=== PATIENT | female | born 1970 | race Caucasian/White ===

== ENCOUNTER 2022-08-14 08:03 | Emergency (ER) | payer OTHER, SELFPAY ==
--- NOTE | ~2022-08-14 | XR_ITS ---
EXAMINATION: XR lumbar spine min 4V DATE: 08/14/2022 08:47 INDICATION: Low back pain with right-sided sciatica. TECHNIQUE: 5 views of lumbar spine were obtained. COMPARISON: None. FINDINGS: There is 6 degrees dextrocurvature of thoracolumbar spine. Vertebral body heights are dino l. There is mildly decreased disc height at L5-S1. There are endplate osteophytes at most levels. The re is multilevel mild facet joint osteoarthritis. On the right, there is moderate facet joint osteoar thritis at L5-S1. IMPRESSION: 1. Mild lumbar spondylosis. Reviewed, dictated and finalized at location A. IMPRESSION: 1. Mild lumbar spondylosis.
[2022-08-14 08:24] VITALS: BP 132/89; PULSE 114; RESP 18; TEMP 36.7; O2SAT 100
--- NOTE | 2022-08-14 08:24 | ED.GENADULT ---
HPI - General Adult General Chief complaint: Back Pain/Injury Stated complaint: back/leg pain Time Seen by Provider: 08/14/22 08:30 Source: patient, RN notes reviewed and old records reviewed Mode of arrival: ambulatory Limitations: no limitations History of Present Illness HPI narrative: 51year old female who presents to [facility] care with complaints of right sciatica which started at 0300 am on Sunday with radiation down to mid posterior thigh. Patient reports no tingling or numbness down her right leg, reports feelings of muscle spasms in upper and lower leg. Patient reports that she did telehealth visit and received script for Robaxin which she reports did not help at all, has been taking Ibuprofen for her discomfort. Patient states no problems with her bowel or bladder function or any saddle parasthesia. MD complaint: right sciatica Onset (ago): day(s) (2) Severity scale (1-10): 5 Treatments prior to arrival: NSAID and other (Robaxin) Related Data Home Medications Medication Instructions Recorded Confirmed lisinopril 20 1 tablet PO DAILY 08/14/22 08/14/22 mg-hydrochlorothiazide 25 mg tablet sertraline 50 mg tablet 50 mg PO DAILY 08/14/22 08/14/22 Allergies Allergy/AdvReac Type Severity Reaction Status Date / Time aspirin Allergy Anaphylaxis Verified 08/14/22 08:27 Penicillins Allergy Anaphylaxis Verified 08/14/22 08:27 Review of Systems Review of Systems: CONSTITUTIONAL: Denies fever, chills, or sweats. CARDIOVASCULAR: Denies chest pain, palpitations, or edema. RESPIRATORY: Denies cough or dyspnea. GASTROINTESTINAL: Denies abdominal pain, nausea, vomiting, or diarrhea. GENITOURINARY: Denies dysuria or hematuria. SKIN: Denies rash or itching. MUSCULOSKELETAL: Reports right sided lower back pain with radiation down right posterior thigh. Joint pain or myalgia. NEUROLOGIC: Denies headache, numbness, or weakness. All systems reviewed & are unremarkable except as noted in HPI and below PMFSH Past Medical History Medical History (Updated 08/14/22 @ 09:15 by Carlota Whitlock NP) Anxiety Hypertension Comments At time of signature, agree with nursing past medical, surgical, social and family history. There is no relevant family history pertinent to the presenting complaint Exam Narrative: GENERAL: Well-appearing, well-nourished, and in no acute distress. HEAD: Normocephalic, atraumatic. EYES: PERRLA and EOMI. NECK: Supple. No lymphadenopathy. CHEST: Clear to auscultation. No respiratory distress. HEART: Regular rate and rhythm. Distal pulses palpable and equal, cap refill <3 seconds ABDOMEN: Soft, nontender, nondistended, normal active bowel sounds, no palpable or pulsatile masses. No CVA tenderness MUSCULOSKELETAL: Normal range of motion and strength in all extremities; 5/5 strength with hip flexion and extension, dorsiflexion and extension, knee flexion and extension, plantar flexion and extension. Normal sensation in dermatomal distributions with sensitivity to light touch and pain. No midline back tenderness to palpation. No paraspinal tenderness. Transfers from lying to sitting to standing,pain right sciatica down posterior leg to knee, denies any tingling or numbness to legs. SKIN: Warm, dry, no rash. No ecchymosis, erythema, open wounds to back. NEURO: No focal deficits. Alert and oriented x3. Reflexes intact. Normal gait. PSYCH: Normal mood and affect Course Course Emergency Course: Patient is aware of diagnosis, understands and agrees to treatment plan. Anticipatory guidance given. Patient agrees to follow-up as directed and is aware of reasons to seek care at the emergency department. Portions of this record may have been created with voice recognition software Level of Care: Express Care Visit Vital Signs Vital signs: Vital Signs Temperature 36.7 C 08/14/22 08:24 Pulse Rate 114 H 08/14/22 08:24 Respiratory Rate 18 08/14/22 08:24 Blood Pressure 13
== END 2022-08-14 09:20 | disposition home or self-care (01) ==
PROVIDERS: Emergency Provider Registered Nurse
DX: M54.41 Lumbago with sciatica, right side (principal); I10 Essential (primary) hypertension; F41.9 Anxiety disorder, unspecified
CPT/HCPCS: 72110; 99203; G0463

== ENCOUNTER 2024-08-01 18:42 | Emergency (ER) | payer OTHER, SELFPAY ==
--- NOTE | 2024-08-01 18:45 | ED.SKABFB ---
HPI - Skin/Abscess/Foreign Bdy General Chief complaint: Skin/Abscess/Foreign Body Stated complaint: Lump on Chest Time Seen by Provider: 08/01/24 18:44 Source: patient Mode of arrival: ambulatory Limitations: no limitations History of Present Illness HPI narrative: Daniel is a 53-year-old female patient presenting to the clinic today with complaints of a lump on her chest/ breast. She reports lump has been there for approximately 4-5 days. States that her dog jumped on her prior to her developing this lump. Lump is tender to touch and movable. No fevers. No redness. Related Data Home Medications ?Medication ?Instructions ?Recorded ?Confirmed ?Last Taken ?Type lisinopril 20 1 tablet PO DAILY 08/14/22 08/14/22 Unknown History mg-hydrochlorothiazide 25 mg tablet sertraline 50 mg tablet 50 mg PO DAILY 08/14/22 08/14/22 Unknown History Allergies Allergy/AdvReac Type Severity Reaction Status Date / Time aspirin Allergy Anaphylaxis Verified 08/01/24 18:50 Penicillins Allergy Anaphylaxis Verified 08/01/24 18:50 Review of Systems Review of Systems: Pertinent positives per HPI. Patient denies any fever, chills, rash, headache, visual changes, dizziness, cough, runny nose, sore throat, shortness of breath, chest pain, palpitations, nausea, vomiting, diarrhea, constipation, abdominal pain, or any urinary issues. [facility] Past Medical History Medical History Anxiety Hypertension Comments At the time of my signature, I reviewed and agree with the nursing past medical, surgical, social, and family history. There is no relevant family history pertinent to the patient complaint. Exam Narrative: General: Well-developed, well nourished, in no apparent distress Head: Normocephalic, atraumatic. Chest wall/Breasts: Fluctuant mass to the left upper breast, mobile and tender, without redness-area approximately the size of a tennis ball, no dimpling of nipple Cardio: Regular rate and rhythm, s1 and s2 normal, no murmur appreciated. Resp: Clear to auscultation bilaterally, no rhonchi, rales, wheezing or rubs. Course Course Emergency Course: Portions of this record may have been created with voice recognition software. Level of Care: Express Care Visit Vital Signs Vital signs: Vital Signs Temperature 37.1 C 08/01/24 18:50 Pulse Rate 141 H 08/01/24 18:50 Respiratory Rate 18 08/01/24 18:50 Blood Pressure 170/108 H 08/01/24 18:50 Pulse Oximetry 100 08/01/24 18:50 Oxygen Delivery Room Air 08/01/24 18:50 Temperature 37.1 C 08/01/24 18:50 Pulse Rate 141 H 08/01/24 18:50 Respiratory Rate 18 08/01/24 18:50 Blood Pressure 170/108 H 08/01/24 18:50 Pulse Oximetry 100 08/01/24 18:50 Oxygen Delivery Room Air 08/01/24 18:50 Vital signs reviewed Procedures Abscess I/D Left Breast: Date of Incision: 08/01/24 Side (if applicable): left Local Anesthetic: lidocaine 1% and with epi Amount of anesthesia used (mL): 1 Technique: incised with #11 blade Amount of fluid expressed (mL): 45 Irrigation: No Packing used?: none I&D Results: Other (clear/yellowish fluid) Complications: other (None) Abcess I&D Additional Comments: Verbal consent obtained for incision and drainage. Risk and benefits explained and patient voiced understanding. Area was cleansed with betadine. Area was prepped and draped using sterile technique. 27 gauge needle was then used to instill (1) ml of lidocaine with epi into the subcutaneous tissue. Patient tolerated well and anesthesia was appropriate. An 11 blade scalpel was then used to make a 0.5cm incision over the abscess. Clear yellowish fluid expressed from the cyst. Wound culture obtained and sent to lab. Patient tolerated procedure well. MDM - Skin/Abscess/Foreign Bdy MDM Narrative Medical decision making narrative: At the time of visit patient is resting comfortably on the exam table. Patient appears to be nontoxic. Procedures: Incision and drainage of left breast cyst was performed-approximately 30-45 mL of clear fluid was expressed and wound culture was taken. Patient tolerated well Plan: I suspect patient has a subcutaneous breath cyst. Incision and drainage was performed in the office in recommend following up with breast surgeon for cyst. Watch for signs and symptoms of infection. Supportive measures were discussed with the patient and they voiced understanding discharge instructions and agrees to treatment plan. Return precautions reviewed Differential Diagnosis Differential diagnosis: Likely abscess of skin or subcutaneous tissue, viral exanthem, dermatophytosis, urticaria, herpes zoster, allergic reaction to drug, cellulitis, eczema, insect bites, impetigo and contact dermatitis Discharge Plan Discharge Clinical Impression: Cyst of breast Qualifiers: Laterality: left Qualified Code(s): N60.02 - Solitary cyst of left breast Patient Disposition: Home Condition: Stable Instructions: Antibiotic Form, Cyst (ED) Additional Instructions: Cyst of left breast was drained in the clinic today Wound culture was obtained and sent to the lab Daily dressing changes-may change dressing more often if saturated Watch for signs and symptoms of infection-redness, swelling, streaking, increase in pain, fever, or purulent discharge Follow-up with breast surgeon as discussed- Dr. Martin Patient Language: Armenian Prescriptions: No Action lisinopril-hydrochlorothiazide 20-25 mg tablet 1 tablet PO DAILY sertraline 50 mg tablet 50 mg PO DAILY Follow-up/Referrals: PHYSICIAN,ASBESTOS PIPE SUPERVISOR [Primary Care Provider] - Maxine Martin MD [Physician] - 3 Days (Left subcutaneous breast cyst) Time of Disposition: 19:15 Quality NIHSS Nursing Documentation ED NIHSS nursing documentation: reviewed/agree
--- OUTSIDE RECORDS SUMMARY | 2024-08-01 18:45 | XMS_ITS | Continuity of Care Document ---
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 It does not include entries that were removed or entered in error. Problem Status Onset Date Problem Type Date of Resolution Comments Source TACHYCARDIA Active Condition DoD insomnia Active Condition [facility] Preventive Medicine New Patient Evaluation Adult 18-39 Inactive Condition DoD CONJUNCTIVITIS ACUTE VERNAL Inactive Condition [facility] ALLERGIC RHINITIS Active Condition [facility] visit for: issue repeat prescription for medication Active Condition DoD URINARY TRACT INFECTION Inactive Condition DoD anxiety Active Condition About flying DoD BEREAVEMENT WITHOUT COMPLICATIONS Inactive Condition [facility] HYPERTENSION (SYSTEMIC) Active Condition [facility] visit for: administrative purpose Inactive Condition [facility] PHARYNGITIS Inactive Condition DoD Medications Combined list of outpatient medications from Department of Defense and Veterans Affairs facilities.Medications provided include 1) outpatient medications from the last 15 months, and 2) patient-reported medications. Medication Details Route Status Patient Instructions Prescription Expires Prescription Number Last Dispense Date Ordering Provider Order Date Order Qty Source LISINOPRIL- HCTZ (LISINOPRIL /HYDROCHLOR OTHIAZIDE), 20-25MG, TABLET, ORAL, LUPIN PHARMACEU, 500 ea. BOTTLE Active [id number] 4 2023 90 Pharmac y Data Transac tion Service Facilit y ONDANSETRON HCL (ONDANSETRO N HCL), 4MG, TABLET, ORAL, AUROBINDO PHARM, 30 ea. BOTTLE Active [id number] 2023 48 Pharmac y Data Transac tion Service Facilit y ONDANSETRON HCL (ONDANSETRO N HCL), 4MG, TABLET, ORAL, AUROBINDO PHARM, 30 ea. BOTTLE Active [id number] 2023 48 Pharmac y Data Transac tion Service Facilit y SERTRALINE HCL (SERTRALINE HCL), 50MG, TABLET, ORAL, LUPIN PHARMACEU, 500 ea. BOTTLE Active [id number] 2023 90 Pharmac y Data Transac tion Service Facilit y TOPIRAMATE (TOPIRAMATE ), 25 MG, TABLET, ORAL, [employer] 60 ea. BOTTLE Active [id number] 2023 60 Pharmac y Data Transac tion Service Facilit y Allergies, Adverse Reactions, Alerts Combined list of allergies from Department of Defense and Veterans Affairs facilities. It does not include entries that were removed or entered in error. Substance Category Reaction Severity Reaction type Status Date Reported Comments Source ASPIRIN (ASPIRIN) Drug allergy (disorder ) Unknown active 2 [facility] ASPRIN FREE ANALGESIC (ACETAMINOPHE N/PHENYLTOLX CIT) Drug allergy (disorder ) Unknown active 5 [place] PEN-VEE K (PENICILLIN V POTASSIUM) Drug allergy (disorder ) Unknown active 8 [place] PENICILLINS Drug allergy (disorder ) Unknown active 2 [facility] SULFA-DRUGS Drug allergy (disorder ) Unknown active 2 [facility] Immunizations Combined list of available immunizations from the Department of Defense and Veterans Affairs facilities. Immunization Series Date Given Administered By Site Reaction Lot Number CVX Code Drug Nurse Case Manager Status Comments Source COVID-19, mRNA, LNP-S, PF, 100 mcg or 50 mcg dose 2020 Robles [employer] (MOD) Not Given COVID-19, mRNA, LNP-S, PF, 100 mcg or 50 mcg dose DoD influenza, injectable, quadrivalent, preservative free 2020 LEYDI, () Not Given influenza , injectabl e, quadrival ent, preservat sherron free DoD COVID-19, mRNA, LNP-S, PF, 100 mcg or 50 mcg dose 2020 BOX, () Not Given COVID-19, mRNA, LNP-S, PF, 100 mcg or 50 mcg dose DoD Influenza, injectable, Madin Gretchen Canine Kidney, quadrivalent with preservative 1 2016 STEWART LYONS [id number] Seqirus (SEQ) complet ed Influenza , injectabl e, Madin Gretchen Canine Kidney, quadrival ent with preservat sherron DoD Influenza, seasonal, injectable, preservative free 1 2016 CHRISTINA VALLE [id number] Seqirus (SEQ) complet ed Influenza , seasonal, injectabl e, preservat sherron free [facility] influenza virus vaccine, whole virus 1 2014 CHRISTINA VALLE [id number] [employer] (SKB) complet ed influenza virus vaccine, whole virus DoD tetanus toxoid, reduced diphtheria toxoid, and acellular pertu is vaccine, adsorbed 1 2014 LEONARD CHRISTINA [id number] [employer] (SKB) complet ed tetanus toxoid, reduced diphtheri a toxoid, and acellular pertussis vaccine, adsorbed DoD Encounters Combined list of: 1) Encounters from Department of Veterans Affairs facilities going backup to the last 18 months, not all VA inpatient encounters are included; 2) Encounters from the Department of Defense facilities going backup to 280 months. Location Location Details Encounter Type Encounter Number Reason For Visit Attending Provider ADM Date DC Date Status Disposition Source [place](Nurse Call Center) TELE CONSULT [id number] ncc/tri age TIMOTHY MCKEONBeronica Loco 04/20 [place](N[place]) [place] TELE CONSULT [id number] follow up HARRIET MCKEON 04/22 [place] OR YARIEL Pereira([facility] [place] OUTPATIENT [id number] ear SHELLY GELLER 05/22 Released w/o Limitations [place] [facility] [facility] [place] YARIEL Pereira([facility] ([place] TELE CONSULT [id number] UTI protoco l SHELLY GELLER 08/14 [place] Y[place] [facility] [place] YARIEL Pereira([facility] ([place] TELE CONSULT [id number] Refills SHELLY GELLER 06/15 [place] OUTPATIENT [id number] Yrly check up and refills . SHELLY GELLER 06/17 [place] [place]) OUTPATIENT [id number] c/o swollen eyes LINDSEY VOSS 06/28 [place] w/[place] Limitations [place] [facility] OUTPATIENT [id number] b/p LINDSEY VOSS 10/02 [place]ased w/o Limitations [place] [place] OUTPATIENT [id number] sleep problem s./f/u meds LISA PALENCIA 05/20 [place]ased w/[place] Limitations [place] [place] OUTPATIENT [id number] f/u meds LISA PALENCIA 06/16 [place] w/o Limitations [place] [place] OUTPATIENT [id number] [facility] Ladarius/f /u MERY Page 04/16 [place]ased w/o Limitations [place] [place] [id number] Notes Entered by: YARIEL VALLE 20 Apr 2014 0917 ------- ------- ------- ------- -- vaccine CHRISTINA VALLE 04/20 [place]ased w/[place] Limitations [place] [place] [facility] OUTPATIENT [id number] f\u [facility] MERY Amaya 05/12 Released w/o Limitations [place] [place] TELE CONSULT [id number] Notes Entered by: GLORIA VILLARREAL 29 Sep 2014 1447 ------- ------- ------- ------- -- Med request SHIREEN ALONZO 09/29 Other Not Elsewhere Classified [place] [place] [place] TELE CONSULT [id number] Notes Entered by: GLORIA VILLARREAL 25 Jan 2015 0903 ------- ------- ------- ------- -- Med request ANICETO KNIGHT 01/25 Other Not Elsewhere Classified [place] [place] [place] TELE CONSULT [id number] Notes Entered by: CHEVY DARDEN 22 Jul 2015 0911 ------- ------- ------- ------- -- Kassidy Culver Lab results JACQUELIN OSPINA 07/21 Other Not Elsewhere Classified [place] [place] OUTPATIENT [id number] [facility] Anup gonzalez [facility] ANA SANCHEZ 07/25 Released w/o Limitations [place] [place] TELE CONSULT [id number] Notes Entered by: ANA SANCHEZ 30 Jul 2015 0718 ------- ------- ------- ------- -- JACQUELIN Sumner 07/29 Referred for Appointment [place] [place] TELE CONSULT [id number] Notes Entered by: PRABHU GOODMAN 02 Aug 2015 1414 ------- ------- ------- ------- -- Juan José peterson from BHARTI Agarwal 08/01 Other Not Elsewhere Classified [place] JOSE ALBERTO [place]([facility] [place] TELE CONSULT [id number] Notes Entered by: ROLLY MORELAND 09 Aug 2015 1340 ------- ------- ------- ------- -- Med refill ROLLY MORELAND 08/08 Other Not Elsewhere Classified [place] [facility] AL[facility]ERTO [place]([facility] [place]ERT[place]([facility] OUTPATIENT [id number] Iron deficie ncy anemia, unspeci fied LEONOR MORROW MEMariia 08/18 Released w/o Limitations [place] JOSE ALBERTO [place]([facility] [place] JO[facility] ALBERTO [place]([facility]) TELE CONSULT [id number] Notes Entered by: Yoly MORROW MEN 19 Aug 2015 2143 ------- ------- ------- ------- -- Possibl e b12 deficie ncy LEONOR MORROW 08/19 [place] [place] JOSE ALBERTO [place]([facility] TELE CONSULT [id number] Notes Entered by: JOCELYN PANCHAL 10 Sep 2015 09 ------- ------- ------- ------- -- Pcm Carmen peterson Cancer Screeni MONE Brown 09/09 Other Not Elsewhere Classified [place] [place] OUTPATIENT [id number] PCM Carmen --brian w up IM referra l (iron) LEONOR MORROW ROSAURA 09/28 Released w/o Limitations [place] [place] TELE CONSULT [id number] Notes Entered by: HENRIK HICKEY 06 Dec 2015 1248 ------- ------- ------- ------- -- lab HENRIK HICKEY 12/05 Other Not Elsewhere Classified [place] [place] TELE CONSULT [id number] Notes Entered by: CHEVY DARDEN 30 Mar 2016 0853 ------- ------- ------- ------- -- RX Refill request TALHA MANNING 03/30 [place] Appointment [place] [place] [facility] OUTPATIENT [id number] Notes Entered by: YARIEL VALLE 31 Mar 2016 1342 ------- ------- ------- ------- -- vaccine CHRISTINA VALLE 03/31 Released w/o Limitations [place] [place] TELE CONSULT [id number] Notes Entered by: Basilio OLSON 11 Apr 2016 1816 ------- ------- ------- ------- -- PCM Change JUSTINO OLSON 04/12 Ref[place] for Appointment [place] [place] TELE CONSULT [id number] Notes Entered by: HENRIK HICKEY 04 Dec 2016 0816 ------- ------- ------- ------- -- med refill EHNRIK HICKEY 12/04 Medication Refill Forwarded [place] OUTPATIENT [id number] PCM Ilaoa-- PCSing, medicat ion renewal s, last seen CRISTHIAN LEONOR NMN 12/04 [place]ased w/[place] Limitations [place] [place] TELE CONSULT [id number] Notes Entered by: BENJAMIN HERNADEZ 05 Dec 2016 1056 ------- ------- ------- ------- -- pcm:Ivon oa- b\p refill LEONOR MORROW NMN 12/05 [place] [place] TELE CONSULT [id number] Notes Entered by: Yoly MORROW NMMariia 11 Dec 2016 0759 ------- ------- ------- ------- -- B12 deficie HENRIK Louis 12/11 Referred for Appointment [place] [place] OUTPATIENT [id number] Notes Entered by: HENRIK HICKEY 12 Dec 2016 1049 ------- ------- ------- ------- -- PCM Ilaoa-- B12 injecti on ILDANIEL LEONOR NMN 12/12 [place] w[place] Limitations [place] OUTPATIENT [id number] Notes Entered by: HENRIK HICKEY 09 Jan 2017 0918 ------- ------- ------- ------- -- PCM Ilaoa-- B12 injecti on ILAOA, LEONOR NMN 01/09 [place]ased w/o Limitations [place] OUTPATIENT [id number] Notes Entered by: INDIA SALINAS 09 Feb 2017 1128 ------- ------- ------- ------- -- PCM ILAOA-- B12 Injecti on ILAOA, LEONOR NMN 02/09 [place]ased w[place]o Limitations [place] [place]IENT [id number] Notes Entered by: SONY CHOWDHURY 09 Feb 2017 1143 ------- ------- ------- ------- -- Vaccine STEWART LYONS 02/09 Released w/o Limitations [place] [place] TELE CONSULT [id number] Notes Entered by: FRANK BAEZ 28 Mar 2017 1501 ------- ------- ------- ------- -- pcm Ilaoa - uti symptom s, [facility] JEAN MARIE BAEZ 03/28 [place]ased w/o Limitations [place] [place] TELE CONSULT [id number] Notes Entered by: HENRIK HICKEY 01 Jun 2017 1502 ------- ------- ------- ------- -- HENRIK Alcantar 06/01 Medication Refill Forwarded [place] [place] TELE CONSULT [id number] Notes Entered by: HENRIK HICKEY 12 Jun 2017 1101 ------- ------- ------- ------- -- med renewal HENRIK HICKEY 06/12 Medication Refill Forwarded [place] , JOSE ALBERTO([facility] Home [facility]) Procedures Combined list of: 1) Procedures from Department of Veterans Affairs facilities going back up to thelast 18 months, not all VA non-surgical procedures are included; 2) All procedures from the Department of Defense facilities. Procedure Procedure Type Code Date Perfomer Comments [facility] e Vaccines Vaccines [id number] 02/10/20 17 STEWART LYONS Influenza, injectable, MDCK, quadrivalent; Series #: 1; .5 mL; IM; Left Arm; Mfg: Seqirus; Lot: [id number]; VIS given (Taisha: 10/30/2014). [facility] Immunization Administration One Vaccine Immunization Administration One Vaccine [id number] 02/10/[address] Supervised Injection Intramuscular Supervised Injection Intramuscular 74504 01/10/20 17 LEONOR MORROWN LOT#[id number] Cyanocobalamin 1000mcg/ml Gretchen Hargrove Supervised Injection Intramuscular Supervised Injection Intramuscular 28292 12/13/19 17 HENRIK HICKEY LOT:[id number] [facility] Influenza Split Virus Vacc Age 3+ Years IM Preservative Free 03/31/19 17 [facility] Immunization Administration One Vaccine Immunization Administration One Vaccine 24313 03/31/19 17 [facility] Influenza Split Virus Vaccine Age 3+ Years Intramuscular 04/20/19 15 [facility] Immunization Administration One Vaccine Immunization Administration One Vaccine 12140 04/20/[address] [place] [address] Immunization Administration Each Additional Vaccine Immunization Administration Each Additional Vaccine 99418 04/20/19 15 [facility] Tdap Vaccine Tdap Vaccine 24132 04/20/19 15 [facility] Tdap; Series #: 1; .5 mL; IM; Left Arm; Mfg: SmithKline; Lot: [id number]; VIS given (Taisha: 08/11/12). [facility] UNLISTED VACCINE/TOXOID 02/10/20 17 [facility] THERAPEUTIC, PROPHYLACTIC, OR DIAGNOSTIC INJECTION (SPECIFY SUBSTANCE OR DRUG); SUBCUTANEOUS OR INTRAMUSCULAR 02/10/20 17 [facility] INJECTION, VITAMIN B-12 CYANOCOBALAMIN, UP TO 1000 MCG 01/10/20 17 [facility] THERAPEUTIC, PROPHYLACTIC, OR DIAGNOSTIC INJECTION (SPECIFY SUBSTANCE OR DRUG); SUBCUTANEOUS OR INTRAMUSCULAR 12/13/19 17 [facility] INFLUENZA VIRUS VACCINE, TRIVALENT (IIV3), SPLIT VIRUS, PRESERVATIVE FREE, 0.5 ML DOSAGE, FOR INTRAMUSCULAR USE 03/31/19 17 [facility] TETANUS AND DIPHTHERIA TOXOIDS ADSORBED (TD), PRESERVATIVE FREE, WHEN ADMINISTERED TO INDIVIDUALS 7 YEARS OR OLDER, FOR INTRAMUSCULAR USE 04/20/19 15 [facility] Social History Combined list of available smoking, tobacco, and other social history from Department of Defense and Veterans Affairs facilities. Social History Type Response Date Comment [facility] e This section is an empty social history section. DoD
--- OUTSIDE RECORDS SUMMARY | 2024-08-01 18:46 | XMS_ITS | Continuity of Care Document ---
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 It does not include entries that were removed or entered in error. Problem Status Onset Date Problem Type Date of Resolution Comments Source TACHYCARDIA Active Condition DoD insomnia Active Condition [facility] Preventive Medicine New Patient Evaluation Adult 18-39 Inactive Condition DoD CONJUNCTIVITIS ACUTE VERNAL Inactive Condition [facility] ALLERGIC RHINITIS Active Condition [facility] visit for: issue repeat prescription for medication Active Condition DoD URINARY TRACT INFECTION Inactive Condition DoD anxiety Active Condition About flying DoD BEREAVEMENT WITHOUT COMPLICATIONS Inactive Condition [facility] HYPERTENSION (SYSTEMIC) Active Condition [facility] visit for: administrative purpose Inactive Condition [facility] PHARYNGITIS Inactive Condition DoD Medications Combined list [...] ORAL, LUPIN PHARMACEU, 500 ea. BOTTLE Active [id number] 4 2023 90 Pharmac y Data Transac tion Service Facilit y ONDANSETRON HCL (ONDANSETRO N HCL), 4MG, TABLET, ORAL, AUROBINDO PHARM, 30 ea. BOTTLE Active [id number] 2023 48 Pharmac y Data Transac tion Service Facilit y ONDANSETRON HCL (ONDANSETRO N HCL), 4MG, TABLET, ORAL, AUROBINDO PHARM, 30 ea. BOTTLE Active [id number] 2023 48 Pharmac y Data Transac tion Service Facilit y SERTRALINE HCL (SERTRALINE HCL), 50MG, TABLET, ORAL, LUPIN PHARMACEU, 500 ea. BOTTLE Active [id number] 4 2023 90 Pharmac y Data Transac tion Service Facilit y TOPIRAMATE (TOPIRAMATE ), 25 MG, TABLET, ORAL, [employer] 60 ea. BOTTLE Active [id number] 4 2023 60 Pharmac y Data Transac tion Service Facilit y Allergies, Adverse Reactions, Alerts Combined list of allergies from Department of Defense and Veterans Affairs facilities. It does not include entries that were removed or entered in error. Substance Category Reaction Severity Reaction type Status Date Reported Comments Source ASPIRIN (ASPIRIN) Drug allergy (disorder ) Unknown active 2 [facility] ASPRIN FREE ANALGESIC (ACETAMINOPHE N/PHENYLTOLX CIT) Drug allergy (disorder ) Unknown active 5 [place] PEN-VEE K (PENICILLIN V POTASSIUM) Drug allergy (disorder ) Unknown active 8 [place], [place] PENICILLINS Drug allergy (disorder ) Unknown active 2 [facility] SULFA-DRUGS Drug allergy (disorder ) Unknown active 2 [facility] Immunizations Combined list of available immunizations from the Department of Defense and Veterans Affairs facilities. Immunization Series Date Given Administered By Site Reaction Lot Number CVX Code Drug Special Agent Group Insurance Status Comments Source COVID-19, mRNA, LNP-S, PF, 100 mcg or 50 mcg dose 2020 [employer] (MOD) Not Given COVID-19, mRNA, LNP-S, [...] quadrivalent with preservative 1 2016 STEWART LYONS [id number] Seqirus (SEQ) complet ed Influenza , injectabl e, Madin Gretchen Canine Kidney, quadrival ent with preservat sherron DoD Influenza, seasonal, injectable, preservative free 1 2016 CHRISTINA VALLE [id number] Seqirus (SEQ) complet ed Influenza , seasonal, injectabl e, preservat sherron free [facility] influenza virus vaccine, whole virus 1 2014 [...] ADM Date DC Date Status Disposition Source [place](N[place] Call [place]) TELE CONSULT [id number] ncc/tri age TIMOTHY MCKEONBeronica Loco 04/20 [place](Nurs [place] Call [place]) [place] TELE CONSULT [id number] follow up HARRIET MCKEON 04/22 [place] Y[place] Pereira([facility] ([place] OUTPATIENT [id number] ear SHELLY GELLER 05/22 [place]ased [place]/o Limitations [place] [facility] [place]Family [facility] ([place])) TELE CONSULT [id number] UTI protoco l SHELLY GELLER 08/14 [place] [place]([facility] ([place] TELE CONSULT [id number] Refills SHELLY GELLER 06/15 [place] [place] OUTPATIENT [id number] Yrly check up and refills . SHELLY GELLER 06/17 [place]ased w/o Limitations [place] [facility] [place] OUTPATIENT [id number] c/o swollen eyes LINDSEY VOSS 06/28 [place] Limitations [place] OUTPATIENT [id number] b/p LINDSEY VOSS 10/02 [place]ased w/o Limitations [place] [place] [place] OUTPATIENT [id number] sleep problem s./f/u meds LISA PALENCIA 05/20 [place]ased w/[place] Limitations [place] [place] [facility] [place] [place] OUTPATIENT [id number] f/u meds LISA PALENCIA 06/16 [place] Limitations [place] [place] [facility] [place] [place] [facility] OUTPATIENT [id number] [facility] Ladarius/f /u MERY Page 04/16 [place] Limitations [place] [place] [facility] [place] [id number] Notes Entered by: YARIEL VALLE 20 Apr 2014 0917 ------- ------- ------- ------- -- vaccine CHRISTINA VALLE 04/20 [place] Limitations [place] [facility] OUTPATIENT [id number] f\u [facility] MERY Amaya 05/12 [place]ased w/o Limitations [place] [place] [facility] [place] [place] TELE CONSULT [id number] Notes Entered by: GLORIA VILLARREAL 29 Sep 2014 1447 ------- ------- ------- ------- -- Med request SHIREEN ALONZO 09/29 Other Not Elsewhere Classified [place] [place] [facility] [place] [place] [facility] [place] TELE CONSULT [id number] Notes Entered by: GLORIA VILLARREAL 25 Jan 2015 0903 ------- ------- ------- ------- -- Med request ANICETO KNIGHT 01/25 Other Not Elsewhere Classified [place] [place] [facility] [place] [place] [facility] [place] TELE CONSULT [id number] Notes Entered by: CHEVY DARDEN 22 Jul 2015 0911 ------- ------- ------- ------- -- Kassidy Culver Lab results JACQUELIN OSPINA 07/21 Other Not Elsewhere Classified [place] [place] OUTPATIENT [id number] [facility] Anup gonzalez [facility] ANA SANCHEZ 07/25 [place]ased w[place] Limitations [place] [place] [facility] [place] [facility] [place] TELE CONSULT [id number] Notes Entered by: ANA SANCHEZ 30 Jul 2015 0718 ------- ------- ------- ------- -- JACQUELIN Sumner 07/29 [place] Appointment [place] [place] [facility] [place] TELE CONSULT [id number] Notes Entered by: PRABHU GOODMAN 02 Aug 2015 1414 ------- ------- ------- ------- -- Juan José peterson from BHARTI Agarwal 08/01 Other Not Elsewhere Classified [place] ALBERTO [place] [place] [place] [facility] TELE CONSULT [id number] Notes Entered by: ORLLY MORELAND 09 Aug 2015 1340 ------- ------- ------- ------- -- Med refill ROLLY MORELAND 08/08 Other Not Elsewhere Classified [place] [place]([facility]) OUTPATIENT [id number] Iron deficie ncy anemia, unspeci fied LEONOR MORROW AZMariia 08/18 [place]ased [place] Limitations [place] [place] TELE CONSULT [id number] Notes Entered by: Yoly MORROW AZN 19 Aug 2015 2143 ------- ------- ------- ------- -- Possibl e b12 deficie ncy LEONOR MORROW 08/19 [place] [place] [facility]([facility] TELE CONSULT [id number] Notes Entered by: JOCELYN PANCHAL 10 Sep 2015 09 ------- ------- ------- ------- -- Pcm Carmen peterson Cancer Screeni MONE Brown 09/09 Other Not Elsewhere Classified [place] [place] [facility] [place] [facility] OUTPATIENT [id number] PCM Carmen --brian w up IM referra l (iron) LEONOR MORROW ROSAURA 09/28 Released w/o Limitations [place] [place] [facility] [place] [place] [facility] TELE CONSULT [id number] Notes Entered by: HENRIK HICKEY 06 Dec 2015 1248 ------- ------- ------- ------- -- lab HENRIK HICKEY 12/05 Other Not Elsewhere Classified [place] [place] [facility] [place] [facility] TELE CONSULT [id number] Notes Entered by: CHEVY DARDEN 30 Mar 2016 0853 ------- ------- ------- ------- -- RX Refill request TALHA MANNING 03/30 [place] Appointment [place] [place] [facility] OUTPATIENT [id number] Notes Entered by: YARIEL VALLE 31 Mar 2016 1342 ------- ------- ------- ------- -- vaccine CHRISTINA VALLE 03/31 [place]ased [place] Limitations [place] [place] [facility] [place] TELE CONSULT [id number] Notes Entered by: Basilio OLSON 11 Apr 2016 1816 ------- ------- ------- ------- -- PCM Change JUSTINO OLSON 04/12 [place] Appointment [place] [place] [facility] [place] [place] [facility] TELE CONSULT [id number] Notes Entered by: HENRIK HICKEY 04 Dec 2016 0816 ------- ------- ------- ------- -- med refill HENRIK HICKEY 12/04 Medication Ref[place]ed [place] [place] [facility] [place] [facility] OUTPATIENT [id number] PCM Ilaoa-- PCSing, medicat ion renewal s, last seen CRISTHIAN LEONOR NMN 12/04 [place]ased w[place] Limitations [place] [place] [facility] [place] [facility] TELE CONSULT [id number] Notes Entered by: BENJAMIN HERNADEZ 05 Dec 2016 1056 ------- ------- ------- ------- -- pcm:Ivon oa- b\p refill LEONOR MORROW NMN 12/05 [place] [place] [facility] [place] [place] [facility] TELE CONSULT [id number] Notes Entered by: Yoly MORROW NMMariia 11 Dec 2016 0759 ------- ------- ------- ------- -- B12 deficie HENRIK Louis 12/11 [place]oint[place] [place] [facility] [place] [place] [facility] OUTPATIENT [id number] Notes Entered by: HENRIK HICKEY 12 Dec 2016 1049 ------- ------- ------- ------- -- PCM Ilaoa-- B12 injecti on ILDANIEL LEONOR NMN 12/12 [place]itations [place] [place] [facility] [place] [facility] OUTPATIENT [id number] Notes Entered by: HENRIK HICKEY 09 Jan 2017 0918 ------- ------- ------- ------- -- PCM Ilaoa-- B12 injecti on ILAOA, LEONOR NMN 01/09 [place]ased [place] Limitations [place] [place] [facility] [place] [facility] OUTPATIENT [id number] Notes Entered by: INDIA SALINAS 09 Feb 2017 1128 ------- ------- ------- ------- -- PCM ILAOA-- B12 Injecti on ILAOA, LEONOR NMN 02/09 [place]ased w/[place] Limitations [place] [place] [facility] [place]IENT [id number] Notes Entered by: SONY CHOWDHURY 09 Feb 2017 1143 ------- ------- ------- ------- -- Vaccine STEWART LYONS 02/09 Released [place] Limitations [place] [place] [facility] TELE CONSULT [id number] Notes Entered by: FRANK BAEZ 28 Mar 2017 1501 ------- ------- ------- ------- -- pcm Ilaoa - uti symptom s, [facility] JEAN MARIE BAEZ 03/28 Released w/o Limitations [place] [place] [facility] [place] [place] [facility] TELE CONSULT [id number] Notes Entered by: HENRIK HICKEY 01 Jun 2017 1502 ------- ------- ------- ------- -- HENRIK Alcantar 06/01 Medication Refill [place]ed [place] [place] [facility] [place] [facility] TELE CONSULT [id number] Notes Entered by: HENRIK HICKEY 12 Jun 2017 1101 ------- ------- ------- ------- -- med renewal HENRIK HICKEY 06/12 Medication Refill Forwarded [place] , JOSE ALBERTO(Med Home FP Cl Tm 2 [facility]) Procedures Combined list of: 1) Procedures from Department of Veterans Affairs facilities going back up to thelast 18 months, not all VA non-surgical procedures are included; 2) All procedures from the Department of Defense facilities. Procedure Procedure Type Code Date Perfomer Comments [facility] e Vaccines Vaccines [id number] 02/10/20 17 STEWART LYONS Influenza, injectable, MDCK, quadrivalent; Series #: 1; .5 mL; IM; Left Arm; Mfg: Seqirus; Lot: [id number]; VIS given (Taisha: 10/30/2014). [facility] Immunization Administration One Vaccine Immunization Administration One Vaccine 48651 02/10/[address] Supervised Injection Intramuscular Supervised Injection Intramuscular 34448 01/10/20 17 LEONOR MORROWN LOT#[id number] Cyanocobalamin 1000mcg/ml Gretchen Hargrove Supervised Injection Intramuscular Supervised Injection Intramuscular 20879 12/13/19 17 HENRIK HICKEY LOT:[id number] [facility] Influenza Split Virus Vacc Age 3+ Years IM Preservative Free 03/31/19 17 [facility] Immunization Administration One Vaccine Immunization Administration One Vaccine [id number] 03/31/19 17 [facility] Influenza Split Virus Vaccine Age 3+ Years Intramuscular 04/20/19 15 [facility] Immunization Administration One Vaccine Immunization Administration One Vaccine 69440 04/20/[address] [place] [address] Immunization Administration Each Additional Vaccine Immunization Administration Each Additional Vaccine 50696 04/20/19 15 [facility] Tdap Vaccine Tdap Vaccine 42631 04/20/19 15 [facility] Tdap; Series #: 1; .5 mL; IM; Left Arm; Mfg: [employer]; Lot: [id number]; VIS given (Taisha: 08/11/12). [facility] UNLISTED VACCINE/TOXOID 02/10/20 17 [facility] THERAPEUTIC, PROPHYLACTIC, OR DIAGNOSTIC INJECTION (SPECIFY SUBSTANCE OR DRUG); SUBCUTANEOUS OR INTRAMUSCULAR 02/10/20 17 [facility] INJECTION, VITAMIN B-12 CYANOCOBALAMIN, UP TO 1000 MCG 01/10/20 17 [facility] THERAPEUTIC, PROPHYLACTIC, OR DIAGNOSTIC INJECTION (SPECIFY SUBSTANCE OR DRUG); SUBCUTANEOUS OR INTRAMUSCULAR 12/13/19 17 [facility] INFLUENZA VIRUS VACCINE, TRIVALENT (IIV3), SPLIT VIRUS, PRESERVATIVE FREE, 0.5 ML DOSAGE, FOR INTRAMUSCULAR USE 03/31/19 17 [facility] TETANUS AND DIPHTHERIA TOXOIDS ADSORBED (TD), PRESERVATIVE FREE, WHEN ADMINISTERED TO INDIVIDUALS 7 YEARS OR OLDER, FOR INTRAMUSCULAR USE 04/20/19 15 [facility] Social History Combined list of available smoking, tobacco, and other social history from Department of Defense and Veterans Affairs facilities. Social History Type Response Date Comment [facility] e This section is an empty social history section. DoD
[2024-08-01 18:50] VITALS: BP 170/108; PULSE 141; RESP 18; TEMP 37.1; O2SAT 100
[2024-08-01] MEDS: LIDO 1%/EPINEPHRINE 1:100,000 20 ML VIAL 4 ML INFILTRATE (19:01)
== END 2024-08-01 19:21 | disposition home or self-care (01) ==
PROVIDERS: Emergency Provider Nurse Practitioner Family
DX: N60.02 Solitary cyst of left breast (principal); I10 Essential (primary) hypertension; F41.9 Anxiety disorder, unspecified
CPT/HCPCS: 10060; 87070; 87075; 87205; 99213; G0463; J2004

== ENCOUNTER 2024-08-29 08:23 | Outpatient (CLI) | payer OTHER, SELFPAY ==
--- NOTE | ~2024-08-29 | MMUS_ITS ---
EXAMINATION: MM diagnostic jean BI w harsha, US breast BI complete HISTORY: Palpable left breast lump TECHNIQUE: Additional 3-D tomosynthesis images of the breasts were performed and synthetic 2-D images were generated. CAD analysis was submitted and interpreted. High resolution bilateral complete breas t ultrasound was performed. COMPARISON: None BREAST PARENCHYMAL COMPOSITION: Dense: The breasts are extremely dense, which lowers the sensitivity of mammography. FINDINGS: MAMMOGRAPHIC FINDINGS: There is no mammographic evidence for malignancy in the right breast. There is a large partially obsc ured mass in the upper central aspect of the left breast corresponding to the area of palpable concer n. No architectural distortion or suspicious calcifications. ULTRASOUND: Complete US of all 4 quadrants of the breast/s and retroareolar region was reviewed. Right breast: At 10:00, 8 cm from the nipple there is a 5 mm cyst. Near the right nipple there is an oval hypoechoic circumscribed parallel oriented 9 mm mass with low level internal echoes, no internal vascularity and no posterior features, likely benign. Left breast: At 12:00, 3 cm from the nipple in the area palpable concern there is a 4.3 cm simple cys t. At 2:00, 7 cm from the nipple there is a slightly irregular shaped hypoechoic mass with marginal v ascularity, irregular lateral margins measuring 8 x 7 x 6 mm. No posterior features. At 6:00, 2 cm fr om the nipple there is a minimally complicated 4 mm cyst. IMPRESSION: 1. Slightly irregular shaped 8mm left breast mass at 2:00, 7 cm from the nipple. Ultrasound-guided re commended. 2: Probable benign oval right breast mass near the nipple measuring 9 mm. Short-term follow-up ultras ound recommended in 6 month. BI-RADS CATEGORY 4-SUSPICIOUS ABNORMALITY RECOMMENDATION: Ultrasound-guided left breast biopsy recommended. Reviewed, dictated and finalized at location A. IMPRESSION: 1. Slightly irregular shaped 8mm left breast mass at 2:00, 7 cm from the nipple . Ultrasound-guided recommended. 2: Probable benign oval right breast mass near the nipple measuring 9 mm. Short -term follow-up ultrasound recommended in 6 month. BI-RADS CATEGORY 4-SUSPICIOUS ABNORMALITY RECOMMENDATION: Ultrasound-guided left breast biopsy recommended.
== END 2024-08-29 08:24 | disposition home or self-care (01) ==
LOC: MICIMG 08:24
PROVIDERS: PCP Surgery; Visit Provider Surgery
DX: N63.25 Unspecified lump in the left breast, overlapping quadrants (principal); N60.02 Solitary cyst of left breast; R92.8 Other abnormal and inconclusive findings on diagnostic imaging of breast
CPT/HCPCS: 76641; 77062; 77066; G0279

== ENCOUNTER 2024-09-22 09:18 | Outpatient (CLI) | payer OTHER, SELFPAY ==
--- NOTE | ~2024-09-22 | MMUS_ITS ---
EXAMINATION: US breast biopsy LT w image, MM post biopsy diagnostic LT DATE: 09/22/2024 11:05 (accession [id number]), 09/22/2024 11:07 (accession [id number]) INDICATION: 53-year-old woman presents for ultrasound-guided breast biopsy BREAST PARENCHYMAL COMPOSITION:Extremely dense TECHNIQUE: The procedure including the risks, benefits, and alternatives was discussed with the patie nt. The patient understood the risks and agreed to proceed. The skin overlying the upper outer quadrant of the left breast was prepped and draped in usual steril e fashion. Anesthetic was administered with 1% lidocaine subcutaneously. Limited ultrasound examination of the left breast was then again performed. At the 2:00 position of the left breast breast approximately 7 cm from the nipple is a well-circumscr ibed focus of decreased echogenicity measuring 6.4 x 5.6 x 7.5 mm, suitable for biopsy. A 13G introducer was placed using ultrasound guidance into the abnormality at the 2:00 position of th e left breast and the inner needle removed. A 14-gauge biopsy device was then used to obtain 2 biopsy specimens under continuous sonographic guid ance. The biopsy device was then removed, and through the introducer a coil marker was placed. The entry site was cleaned and dressed with Steri-Strips. There were no immediate complications. Post biopsy mammography was then performed in both the CC and MLO positions demonstrating a coil micr oclip in the upper outer quadrant of the left breast without a significant perilesional hematoma. IMPRESSION: 1. Technically successful ultrasound-guided core needle biopsy of a likely complex cyst at the 2:00 p osition of the left breast approximately 7 cm from the nipple, as detailed above, with postprocedure mammogram for marker placement confirmation. Pathology pending Reviewed, dictated and finalized at location A. IMPRESSION: 1. Technically successful ultrasound-guided core needle biopsy of a likely comp maddie cyst at the 2:00 position of the left breast approximately 7 cm from the ni pple, as detailed above, with postprocedure mammogram for marker placement conf irmation. Pathology pending
--- NOTE | 2024-09-22 11:04 | S_PTH ---
PATIENT: Daniel Britt LOC: [facility] U#:[id number] AGE/SX: 53/F ROOM: RE09/22/[address]: Maxine Martin MD : [id number] BED: DIS: 09/22/2024 SPEC #: [id number] RECD: 09/22/24 14:40 STATUS: LYNETTE RERohan #: [id number] MILO: 09/22/24 11:[address]: Maxine Martin DEPT: [facility] Surgical RECD BY: Brie Laguna Tissues: A - Breast Biopsy Procedures: Hematoxylin and Eosin Stain Gross and Microscopic Level 4
== END 2024-09-22 09:19 | disposition home or self-care (01) ==
PROVIDERS: PCP Surgery; Visit Provider Surgery
DX: D24.2 Benign neoplasm of left breast (principal); N60.22 Fibroadenosis of left breast
CPT/HCPCS: 19083; 77065; 88305; A4648

== ENCOUNTER 2024-12-28 09:19 | Emergency (ER) | payer OTHER, SELFPAY ==
[2024-12-28 09:25] VITALS: BP 153/93; PULSE 110; RESP 18; TEMP 36.9; O2SAT 100
--- NOTE | 2024-12-28 09:30 | ED_ITS ---
HPI - Ear Problem General Chief complaint: Ear Stated complaint: Lt Ear Pain Time Seen by Provider: 12/28/24 09:20 Source: patient Mode of arrival: ambulatory Limitations: no limitations History of Present Illness HPI Narrative: Patient is a 54-year-old female who presents with left ear pain. Patient has had 2 days of azithromycin for sore throat. Patient states sore throat is better but now her ear hurts. Patient has severe allergy to penicillin. Has taken 400 mg of ibuprofen every 8 hours. MD Complaint: ear pain Related Data Home Medications ?Medication ?Instructions ?Recorded ?Confirmed ?Last Taken ?Type lisinopril 20 1 tablet PO DAILY 08/14/22 1 Unknown History mg-hydrochlorothiazide 25 mg tablet sertraline 50 mg tablet 50 mg PO DAILY 08/14/2208/17 Unknown History azithromycin 250 mg tablet mg 12/28/24 Unknown Histor y benzonatate 100 mg capsule mg PO 12/28/24 Unknown His tory Allergies Allergy/AdvReac Type Severity Reaction Status Date / Time aspirin Allergy Severe Anaphylaxis Verified 12/28/24 09:23 Penicillins Allergy Severe Anaphylaxis Verified 12/28/24 09:23 Review of Systems Review of Systems: All systems reviewed & are unremarkable except as noted in HPI and below Constitutional: Constitutional: Denies body ache(s), Denies chills, Denies fever(s), Denies headache(s) and Denies malaise Eyes: Eyes: Denies blurry vision, Denies eye discharge and Denies irritation ENT: Reports otalgia, Denies headache(s), Denies nasal congestion, Denies nasal discharge and Denies sore throat Cardiovascular: Cardiovascular: Denies chest pain, Denies edema, Denies palpitations and Denies dyspnea on exertion Respiratory: Respiratory: Denies cough and Denies dyspnea on exertion Gastrointestinal: Gastrointestinal: Denies abdominal pain, Denies diarrhea, Denies nausea and Denies vomiting Musculoskeletal: Musculoskeletal: Denies back pain, Denies arthralgias and Denies muscle weakness Integumentary/Breasts: Skin/Breast: Denies pruritus and Denies rash Neurologic: Denies headache(s) Psychiatric: Psychiatric: Reports no additional psychiatric complaints Endocrine: Endocrine: Denies palpitations PMFSH Past Medical History Medical History Anxiety Hypertension Social History Social History Smoking status: Never smoker Tobacco type: e-cigarettes/vaping Alcohol intake: current Substance use: never Substance use type: does not use Do You Feel Safe in your Home?: Yes Lack of Transportation: No Lack of Food: Never True Current Housing: I Have Housing Concerned About Future Housing: No Difficulty Paying Gas/Electric Bills: No Difficulty Paying for Meds: No Currently Unemployed: No Education: Bachelor's Degree Difficulty w/ Childcare or Family Care: No Comments At time of signature, agree with nursing past medical, surgical, social and family history. There is no relevant family history pertinent to the presenting complaint? Exam Const: General: cooperative, healthy appearing, no acute distress and well nourished Nutritional Appearance: well nourished Orientation/consciousness: patient oriented x3 Limitations: no limitations HENMT: Head: normal to inspection, normocephalic and atraumatic Ears: heari ng grossly normal bilaterally, EAC's normal, no periauricular adenopathy and TM abnormal bulging on the left and erythematous on the left Face/Nose/Sinus: Normal external nose present, Normal nares present, Normal nasal mucous membranes and turbinates present, No nasal discharge present, normal facial exam and sinuses nontender Face and sinus: normal facial exam and sinuses nontender Mouth: Yes Normal oral and palatal mucosa present, Yes lip normal, Yes tongue normal and Yes moist mucous membranes Throat: posterior oropharynx normal, tonsils normal and uvula midline Eyes: General: appearance normal, both eyes and all related structures Alignment and Position: alignment normal and position normal Eyelids: eyelids normal Pupils: Equal, round and reactive pupils present EOM: EOMs intact bilaterally Neck: Neck: normal visual inspection, full ROM, no lymphadenopathy and supple Chest: Chest palpation & inspection: normal inspection of the chest Resp: Effort & Inspection: normal respiratory effort and able to speak in complete sentences Auscultation: clear to auscultation bilaterally, no crackles, no rales, no rhonchi and no wheezes Cardio: Rate: tachycardic Rhythm: regular rhythm Heart sounds: S1 normal heart sound present and S2 normal heart sound present Skin: General skin exam: normal color and no rashes or lesions noted Neuro: General: patient oriented x3 and moves all extremities Cranial nerves: Yes Equal, round and reactive pupils present Cognition (Neuro): normal cognition Speech: normal speech Gait exam (Neuro): Normal gait present Extrem: General: normal to inspection and full ROM Psych: Appearance: grossly normal and well kempt Mental Status: mental status grossly normal Speech and movement: Normal speech and movement present Course Course Emergency Course: Patient is aware of diagnosis, understands and agrees to treatment plan.? Anticipatory guidance given.? Patient agrees to follow-up as directed and is aware of reasons to seek care at the emergency department.? Portions of this record may have been created with voice recognition software? Level of Care: Express Care Visit Vital Signs Vital signs: Vital Signs Temperature 36.9 C 12/28/24 09:25 Pulse Rate 110 H 12/28/24 09:25 Respiratory Rate 18 12/28/24 09:25 Blood Pressure 153/93 H 12/28/24 09:25 Pulse Oximetry 100 12/28/24 09:25 Oxygen Delivery Room Air 12/28/24 09:25 Temperature 36.9 C 12/28/24 09:25 Pulse Rate 110 H 12/28/24 09:25 Respiratory Rate 18 12/28/24 09:25 Blood Pressure 153/93 H 12/28/24 09:25 Pulse Oximetry 100 12/28/24 09:25 Oxygen Delivery Room Air 12/28/24 09:25 Reviewed Medical Decision Making MDM Narrative Medical decision making narrative: Pt well hydrated appearing, in no respiratory distress, hemodynamically stable. Recommend supportive care. The patient is stable at time of discharge the clinical impression was discussed and the patient was given the opportunity to ask questions, which were addressed as completely as possible given the information available at present. Anticipatory guidance and return to care prec autions were discussed and the importance of primary care follow-up was stressed and encouraged. The patient voiced understanding of the plan, indications to return, and the need for follow-up. Exam findings show no acute concerns or changes Patient is appropriate for outpatient treatment and follow-up. Differential diagnosis considered: otitis media, otitis externa, otitis effusion, foreign body, cerumen impaction, viral syndrome Medical Records Medical records reviewed: Yes I reviewed the external patient's medical records. Vital Signs Vital Signs: Vital Signs Temperature 36.9 C 12/28/24 09:25 Pulse Rate 110 H 12/28/24 09:25 Respiratory Rate 18 12/28/24 09:25 Blood Pressure 153/93 H 12/28/24 09:25 Pulse Oximetry 100 12/28/24 09:25 Oxygen Delivery Room Air 12/28/24 09:25 Temperature 36.9 C 12/28/24 09:25 Pulse Rate 110 H 12/28/24 09:25 Respiratory Rate 18 12/28/24 09:25 Blood Pressure 153/93 H 12/28/24 09:25 Pulse Oximetry 100 12/28/24 09:25 Oxygen Delivery Room Air 12/28/24 09:25 Discharge Plan Discharge Clinical Impression: Otitis media Qualifiers: Otitis media type: suppurative Chronicity: acute Laterality: left Recurrence: non-recurrent Spontaneous tympanic membrane rupture: without spontaneous rupture Qualified Code(s): H66.002 - Acute suppurative otitis media without spontaneous rupture of ear drum, left ear Patient Disposition: Home Condition: Stable Instructions: Ear Infection (GEN) Additional Instructions: Take antibiotics as directed. Recommend antihistamine such as Benadryl at night time and Zyrtec or [place] during the day until symptoms improve Flonase nasal spray, 1 spray in each nostril once daily until symptoms improve Also, recommend symptomatic treatment includes: rest, fluids, and increase humidity of the air at home. For pain, you may take: Tylenol 650-1000mg by mouth every 4-6 hours. Do not exceed 4000mg in 24 hours. Advil (Ibuprofen) 600 mg by mouth every 6 hours. Do not exceed 2400mg in 24 hours. 8 AM: Tylenol 11 AM: Ibuprofen 2 PM: Tylenol 5 PM: Ibuprofen 8 PM: Tylenol 11 PM: Ibuprofen 2 AM: Tylenol 5 AM: Ibuprofen Please schedule a follow-up visit with your personal physician for further evaluation and treatment within 3-5days. If your symptoms persist, change or worsen significantly before you can contact your personal physician then please, without delay, go to the emergency department for further evaluation. Your blood pressure was elevated above 120/80 today at Urgent Care. This puts you above the threshold for follow up visit with a primary care provider. High blood pressure does not usually cause any symptoms, however it may lead to kidney failure, stroke, heart disease just to name a few if untreated . Many people are anxious when seeing a provider or nurse. As a result, you are not diagnosed with hypertension at this time unless your blood pressure is persistently high at two office visits at least one week apart. Some things that can help lower blood pressure are lifestyle modifications, such as light exercise, decreased salt in diet, and weight loss. It is important to follow up with a PCP about this within 1 week. Patient Language: Yi Prescriptions: New azithromycin 250 mg tablet See Rx Instructions .ROUTE .COMPLEX Qty: 3 0RF Rx Instructions: Add a second dose to your 3 remaining days fluticasone propionate [Flonase Allergy Relief] 50 mcg/actuation spray,suspension 1 spray intranasal DAILY Qty: 16 0RF Rx Instructions: administer into each nostril No Action lisinopril-hydrochlorothiazide 20-25 mg tablet 1 tablet PO DAILY sertraline 50 mg tablet 50 mg PO DAILY azithromycin 250 mg tablet benzonatate 100 mg capsule PO Follow-up/Referrals: Bernardo Lim MD [Physician, Family Practice] - 3 Days Time of Disposition: 09:50
== END 2024-12-28 09:51 | disposition home or self-care (01) ==
PROVIDERS: Emergency Provider Nurse Practitioner Family
DX: H66.002 Acute suppurative otitis media without spontaneous rupture of ear drum, left ear (principal); I10 Essential (primary) hypertension; F41.9 Anxiety disorder, unspecified
CPT/HCPCS: 99213; G0463